=== PATIENT | female | born 1975 | race Caucasian/White ===

== ENCOUNTER 2016-12-03 22:34 | Emergency (ER) | payer BC ==
[~2016-12-03] VITALS: Ht 180.3 cm; Wt 134.1 kg
[2016-12-03 22:38] VITALS: TEMP 96.9
[2016-12-03 23:13] LABS: BASO % 0.2 % (0.0-2.0); EOS % 0.2 % (0-4.0); GRAN # 2.9 (1.4-6.5); GRAN % 45.9 % (42.2-75.2); HEMATOCRIT 37.5 % (37.0-47.0); HEMOGLOBIN 12.2 g/dl (12.5-16.0); LYMPH # 2.6 (1.2-3.4); LYMPH % 41.7 % (20.0-51.0); MEAN CELL VOLUME 94 fl (80.0-100.0); MEAN CORPUSCULAR HEMOGLOBIN 31 pg (27.0-31.0); MEAN CORPUSCULAR HGB CONC 33 g/dl (33.0-37.0); MEAN PLATELET VOLUME 9.5 fl (7.4-10.4); MONO # 0.7 (0.1-0.6); MONO % 11.7 % (1.7-9.3); PLATELET COUNT 251 K/mm3 (130-400); RED BLOOD COUNT 3.99 M/mm3 (4.10-5.30); REDCELL DISTRIBUTION WIDTH-CV 13.3 % (11.5-14.5); WHITE BLOOD COUNT 6.3 K/mm3 (4.8-10.8)
[2016-12-03 23:24] LABS: ADJUSTED CALCIUM 9.3 mg/dL (8.4-10.2); ALANINE AMINOTRANSFERASE 41 U/L (9-52); ALBUMIN 3.8 gm/dL (3.5-5.0); ALKALINE PHOSPHATASE 120 U/L (50-136); ANION GAP 11 mmol/L (7-16); BILIRUBIN,TOTAL 0.5 mg/dL (0.0-1.0); BLOOD UREA NITROGEN 10 mg/dL (7-17); CALCIUM 9.1 mg/dL (8.4-10.2); CARBON DIOXIDE 27 mmol/L (22-30); CHLORIDE 103 mmol/L (98-107); GLUCOSE 98 mg/dL (74-106); LIPASE 54 U/L (23-300); MAGNESIUM 1.8 mg/dL (1.6-2.3); POTASSIUM 3.6 mmol/L (3.4-5.0); SODIUM 142 mmol/L (137-145); TOTAL PROTEIN 7.4 gm/dL (6.4-8.2)
[2016-12-03 23:36] LABS: B-TYPE NATRIURETIC PEPTIDE 108 pg/mL (0-125)
[2016-12-03 23:40] LABS: TROPONIN-I < 0.012 ng/mL (0.000-0.034)
[2016-12-04 04:28] VITALS: BP 115/78; PULSE 73
== END 2016-12-04 04:29 | disposition home or self-care (01) ==
LOC: COL.ER 22:34
PROVIDERS: Emergency Medicine
DX: R07.9 Chest pain, unspecified (principal); I10 Essential (primary) hypertension
CPT/HCPCS: J1170; J1885; J2060

== ENCOUNTER 2021-06-22 09:37 | Day surgery (SDC) | payer BC ==
[~2021-06-22] VITALS: Ht 180.3 cm; Wt 126.8 kg
[2021-06-22] VITALS (10 sets, daily range): BP systolic 107–130; BP diastolic 62–81; PULSE 58–64; TEMP 98.5
[2021-06-22] MEDS ORDERED: BYSTOLIC5 MG PO (09:59)
[2021-06-22] MEDS ORDERED: ASPIRIN 81M81 MG/TA2 PO (10:00)
[2021-06-22] MEDS ORDERED: NORVASC 5MG5 MG/TAB PO (10:01)
[2021-06-22] MEDS ORDERED: WELLBUTRIN XL300 M1 PO (10:01)
[2021-06-22] MEDS ORDERED: EFFEXOR 75M75 MG/TAB PO (10:02)
[2021-06-22] MEDS ORDERED: EFFEXOR 50M50 MG/TAB PO (10:02)
[2021-06-22] MEDS ORDERED: DESYREL DIVIDO150 M1 PO (10:03)
[2021-06-22] MEDS ORDERED: SYNTHROID 0.10.15 MG PO (10:03)
[2021-06-22] MEDS ORDERED: MELATONIN5 M1 SL (10:04)
[2021-06-22] MEDS ORDERED: CAMILA0.35 MG PO (10:05)
[2021-06-22] MEDS ORDERED: BENICAR HCT 12.1 TAB PO (10:06)
[2021-06-22 10:41] LABS: BASO % 0.2 % (0.0-2.0); EOS # 0.2 (0.0-0.7); EOS % 2.1 % (0-4.0); GRAN # 5.3 (1.4-6.5); GRAN % 60.3 % (42.2-75.2); HEMATOCRIT 40.6 % (37.0-47.0); HEMOGLOBIN 13.1 g/dl (12.5-16.0); LYMPH # 2.6 (1.2-3.4); LYMPH % 28.9 % (20.0-51.0); MEAN CELL VOLUME 98 fl (80.0-100.0); MEAN CORPUSCULAR HEMOGLOBIN 32 pg (27.0-31.0); MEAN CORPUSCULAR HGB CONC 32 g/dl (33.0-37.0); MEAN PLATELET VOLUME 9.8 fl (7.4-10.4); MONO # 0.7 (0.1-0.6); MONO % 8.4 % (1.7-9.3); PLATELET COUNT 291 K/mm3 (130-400); RED BLOOD COUNT 4.16 M/mm3 (4.10-5.30); REDCELL DISTRIBUTION WIDTH-CV 12.7 % (11.5-14.5)
[2021-06-22 10:55] LABS: ALANINE AMINOTRANSFERASE 19 U/L (0-55); ALBUMIN 3.8 gm/dL (3.5-5.0); ALKALINE PHOSPHATASE 85 U/L (0-750); ANION GAP 8 mmol/L; AST,SGOT 17 U/L (5-34); BILIRUBIN,TOTAL 0.3 mg/dL (0.2-1.2); BLOOD UREA NITROGEN 16 mg/dL (7-19); CALCIUM 9.4 mg/dL (8.4-10.2); CARBON DIOXIDE 27 mEq/L (22-29); CHLORIDE 103 mmol/L (98-107); CREATININE, serum 0.82 mg/dL (0.57-1.11); GLUCOSE 99 mg/dL (70-99); SODIUM 138 mmol/L (136-145); TOTAL PROTEIN 7.2 gm/dL (6.2-8.1)
[2021-06-22 11:07] LABS: TROPONIN-I < 0.010 ng/mL (0.00-0.033)
--- NOTE | 2021-06-22 13:38 | NUR ---
SEE MERGE DOCUMENTATION FOR MEDICATION ADMINISTRATION TIMES AND INTRA/POST PROCEDURE SEDATION ASSESSMENTS.
--- NOTE | 2021-06-22 15:00 | NUR ---
Report from Braulio CELIS. Transferred from [employer] by bed. Alert and oriented, denies pain and needs at this time. 12 cc air to right Tband, good pulses and cap refill < 3 secs noted. VSS. Friend bedside
--- NOTE | 2021-06-22 18:11 | NUR ---
12 cc air released from right Tband and dressing applied. INT discontinued intact. Discharge instructions given. Getting dressed
--- NOTE | 2021-06-22 18:26 | NUR ---
Tranferred to private car by
== END 2021-06-22 18:27 | disposition home or self-care (01) ==
LOC: COL.ER 09:37 → SDCO 13:20
PROVIDERS: Nurse Practitioner
DX: R94.39 Abnormal result of other cardiovascular function study (principal); I20.9 Angina pectoris, unspecified; I10 Essential (primary) hypertension; Z79.899 Other long term (current) drug therapy; Z20.822 Contact with and (suspected) exposure to COVID-19; Z79.82 Long term (current) use of aspirin; Z79.890 Hormone replacement therapy; Z80.51 Family history of malignant neoplasm of kidney; Z90.49 Acquired absence of other specified parts of digestive tract; Z90.89 Acquired absence of other organs
CPT/HCPCS: C1769; C1887; J1644; J2250; J2405; J3010; Q9967